=== PATIENT | female | born 1950 | race Caucasian/White ===

== ENCOUNTER 2017-01-02 12:30 | Outpatient (RCR) | payer MEDICARE, OTHER ==
[~2017-01-02 12:30] MED LIST: ESTRACE1 MG PO; FLONASE0.05 MG/AC NS; TAPAZOLE 5MG TAB5 MG PO; TENORMIN25 MG PO; ZITHROMAX 250M250 MG PO
== END 2017-01-02 13:17 ==
LOC: MKS.ESL.PT 12:30
DX: M25.511 Pain in right shoulder (principal)
CPT/HCPCS: G8978-GP; G8979-GP; G8980-GP

== ENCOUNTER 2017-07-07 11:28 | Emergency (ER) | payer MEDICARE, OTHER ==
[~2017-07-07] VITALS: Ht 66 cm; Wt 70.9 kg
[~2017-07-07 11:28] MED LIST changes: +TENORMIN 2525 MG/TAB PO; -TENORMIN25 MG PO
[2017-07-07 11:35] VITALS: TEMP 97.5
[2017-07-07] MEDS ORDERED: B-12 100 MCG PO (11:42)
[2017-07-07 12:00] LABS: BASO # 0.1 (0.0-0.2); BASO % 0.7 % (0.0-2.0); EOS # 0.2 (0.0-0.7); EOS % 2.6 % (0-4.0); GRAN # 4.6 (1.4-6.5); LYMPH # 2.6 (1.2-3.4); LYMPH % 31.7 % (20.0-51.0); MEAN CELL VOLUME 70 fl (80.0-100.0); MEAN CORPUSCULAR HGB CONC 29 g/dl (33.0-37.0); MEAN PLATELET VOLUME 10.8 fl (7.4-10.4); MONO # 0.8 (0.1-0.6); MONO % 9.9 % (1.7-9.3); PLATELET COUNT 342 K/mm3 (130-400); RED BLOOD COUNT 5.05 M/mm3 (4.10-5.30); REDCELL DISTRIBUTION WIDTH-CV 17.4 % (11.5-14.5)
[2017-07-07 12:01] LABS: HEMATOCRIT 35.1 % (37.0-47.0); HEMOGLOBIN 10.2 g/dl (12.5-16.0); MEAN CORPUSCULAR HEMOGLOBIN 20 pg (27.0-31.0)
[2017-07-07 12:08] LABS: ALANINE AMINOTRANSFERASE 33 U/L (9-52); ALBUMIN 4.8 gm/dL (3.5-5.0); ALKALINE PHOSPHATASE 56 U/L (50-136); ANION GAP 14 mmol/L (7-16); AST,SGOT 27 U/L (15-37); BILIRUBIN,TOTAL 0.2 mg/dL (0.0-1.0); BLOOD UREA NITROGEN 14 mg/dL (7-17); CALCIUM 9.7 mg/dL (8.4-10.2); CARBON DIOXIDE 28 mmol/L (22-30); CHLORIDE 101 mmol/L (98-107); CREATININE, serum 0.73 mg/dL (0.52-1.25); GLUCOSE 132 mg/dL (74-106); LIPASE 102 U/L (23-300); POTASSIUM 4.3 mmol/L (3.4-5.0); SODIUM 143 mmol/L (137-145); TOTAL PROTEIN 7.6 gm/dL (6.4-8.2)
[2017-07-07 12:21] LABS: TROPONIN-I < 0.012 ng/mL (0.000-0.034)
[2017-07-07] MEDS ORDERED: PREDNISONE20 MG PO (13:23)
[2017-07-07 14:23] VITALS: BP 137/57; PULSE 72
== END 2017-07-07 14:35 | disposition home or self-care (01) ==
LOC: COL.ER 11:28
PROVIDERS: Emergency Medicine
DX: J45.909 Unspecified asthma, uncomplicated (principal); R07.89 Other chest pain; I10 Essential (primary) hypertension; K21.9 Gastro-esophageal reflux disease without esophagitis; Z87.39 Personal history of other diseases of the musculoskeletal system and connective tissue; Z79.51 Long term (current) use of inhaled steroids
CPT/HCPCS: J7512

== ENCOUNTER 2017-10-09 12:45 | Outpatient (RCR) | payer MEDICARE, OTHER ==
[~2017-10-09 12:45] MED LIST changes: +B-12 100 MCG PO; +PREDNISONE20 MG PO
== END 2017-11-28 | disposition home or self-care (01) ==
LOC: MKS.ESL.PT
DX: M25.511 Pain in right shoulder (principal)
CPT/HCPCS: G8978-GP; G8979-GP

== ENCOUNTER 2020-04-25 11:00 | Outpatient (RCR) | payer MEDICARE, OTHER | END 2020-05-02 | disposition home or self-care (01) | LOC: MKS.ESL.PT | DX: M79.603 Pain in arm, unspecified (principal) ==

== ENCOUNTER 2020-05-06 14:07 | Outpatient (RCR) | payer MEDICARE, OTHER | END 2020-07-26 14:07 | disposition home or self-care (01) | LOC: MKS.ESL.PT 14:07 | DX: M79.603 Pain in arm, unspecified (principal) ==